=== PATIENT | male | born 1985 | race Caucasian/White ===

== ENCOUNTER 2017-11-23 11:11 | Inpatient (IN) | payer OTHER ==
[2017-11-23] MEDS: morphine 10 MG INJ IV (11:53)
[2017-11-23 13:27] LABS: ADD MAN DIFF? NO
[2017-11-23 13:29] LABS: WHITE BLOOD COUNT 8.4 10^3/ul (4.8-10.8)
[2017-11-23 13:29] LABS: BASOPHIL # 0.1 10^3/ul (0.0-0.1); BASOPHILS % 0.6 % (0.0-2.0); EOSINOPHILS # 0.3 10^3/ul (0.0-0.5); EOSINOPHILS % 3.2 % (0.0-7.0); HEMATOCRIT 45.1 % (42.0-52.0); HEMOGLOBIN 15.5 g/dl (14.0-18.0); LYMPHOCYTES # 2.5 10^3/ul (0.8-2.9); LYMPHOCYTES % 29.9 % (15.0-51.0); MEAN CORPUSCULAR HEMOGLOBIN 33.2 pg (29.0-33.0); MEAN CORPUSCULAR HGB CONC 34.4 g/dl (32.0-37.0); MEAN CORPUSCULAR VOLUME 96.6 fl (82.0-101.0); MEAN PLATELET VOLUME 9.9 fl (7.4-10.4); MONOCYTE # 0.5 10^3/ul (0.3-0.9); MONOCYTES % 6.5 % (0.0-11.0); NEUTROPHILS % 59.6 % (39.0-77.0); PLATELET COUNT 224 10^3/UL (140-415); RED BLOOD COUNT 4.67 10^6/ul (4.70-6.10); RED CELL DISTRIBUTION WIDTH 12.5 % (11.5-14.5)
[2017-11-23 13:32] LABS: INR 0.93; PROTIME 12.5 Sec (11.9-14.9)
[2017-11-23 13:33] LABS: PARTIAL THROMBOPLASTIN TIME 26.3 Sec (25.0-35.0)
[2017-11-23 13:39] LABS: ANION GAP 16 (8-16); BLOOD UREA NITROGEN 14 mg/dl (7-20); CALCIUM 9.4 mg/dl (8.4-10.2); CARBON DIOXIDE 22 mmol/L (21-31); CHLORIDE 107 mmol/L (97-110); CREATININE 0.79 mg/dl (0.61-1.24); GLUCOSE 128 mg/dl (70-220); POTASSIUM 3.5 mmol/L (3.5-5.1); SODIUM 141 mmol/L (135-144)
[2017-11-23] MEDS ORDERED: ACETAMINOPHEN 325 MG TAB PO ×2 (14:00→14:30)
[2017-11-23] MEDS ORDERED: ONDANSETRON 4 MG INJ IV ×2 (14:00→14:30)
[2017-11-23] MEDS: PROPOFOL 200 MG INJ IV (14:01)
[2017-11-23] MEDS: CEFAZOLIN 2 GM/50 ML (PMX) 50 ML IVPB (14:25)
[2017-11-23] MEDS ORDERED: NITROGLYCERIN (SL) 0.4 MG TAB SL (14:30)
[2017-11-23] MEDS ORDERED: NA PHOSPHATE/BIPHOS 133 ML ENEMA PR (14:30)
[2017-11-23] MEDS ORDERED: ALBUTEROL/IPRATROPIUM (NEB) 3 ML AMP HHN (14:30)
[2017-11-23] MEDS ORDERED: MAGNESIUM HYDROXIDE 30ML CUP PO (14:30)
[2017-11-23] MEDS ORDERED: hydrALAzine 20 MG INJ IV (14:30)
[2017-11-23] MEDS ORDERED: DOCUSATE SODIUM 100 MG CAP PO (14:30)
[2017-11-23] MEDS ORDERED: NACL 0.9% 3 ML SYG IV (14:30)
[2017-11-23] MEDS: HYDROmorphONE 2 MG/ML SYG IV (14:34)
[2017-11-23 15:01] LABS: FREE T4 (FREE THYROXINE) 1.03 ng/dl (0.79-2.35)
[2017-11-23] MEDS: morphine 2 MG INJ IV ×2 (17:11→21:29)
[2017-11-23] MEDS: SOD CHLORIDE 0.9% 1,000 ML IV (17:11)
[2017-11-23 19:22] LABS: INR 0.98; PARTIAL THROMBOPLASTIN TIME 29.1 Sec (25.0-35.0); PROTIME 13.1 Sec (11.9-14.9)
[2017-11-23] MEDS: HYDROCODONE/APAP (5/325) TAB PO (20:10)
[2017-11-23] MEDS: HEPARIN 5,000 UNIT/0.5 ML VIAL SC (22:06)
[2017-11-24] MEDS: morphine 2 MG INJ IV ×3 (01:54→16:21)
[2017-11-24] MEDS: SOD CHLORIDE 0.9% 1,000 ML IV ×5 (01:55→22:20)
[2017-11-24 05:40] LABS: ADD MAN DIFF? NO
[2017-11-24] MEDS: PANTOPRAZOLE (EC) 40 MG TAB PO (06:00)
[2017-11-24 06:02] LABS: BASOPHILS % 0.4 % (0.0-2.0); EOSINOPHILS # 0.2 10^3/ul (0.0-0.5); EOSINOPHILS % 2.5 % (0.0-7.0); HEMOGLOBIN 13.4 g/dl (14.0-18.0); LYMPHOCYTES # 2.6 10^3/ul (0.8-2.9); MEAN CORPUSCULAR HEMOGLOBIN 32.8 pg (29.0-33.0); MEAN CORPUSCULAR HGB CONC 33.5 g/dl (32.0-37.0); MONOCYTE # 0.6 10^3/ul (0.3-0.9); MONOCYTES % 6.9 % (0.0-11.0); NEUTROPHIL # 5.7 10^3/ul (1.6-7.5); NEUTROPHILS % 61.9 % (39.0-77.0); PLATELET COUNT 211 10^3/UL (140-415); RED BLOOD COUNT 4.08 10^6/ul (4.70-6.10); RED CELL DISTRIBUTION WIDTH 12.7 % (11.5-14.5)
[2017-11-24 06:02] LABS: WHITE BLOOD COUNT 9.2 10^3/ul (4.8-10.8)
[2017-11-24 06:14] LABS: HEMOGLOBIN A1C 5.5 % (0-5.9)
[2017-11-24 06:30] LABS: ANION GAP 10 (8-16); BLOOD UREA NITROGEN 10 mg/dl (7-20); CALCIUM 8.4 mg/dl (8.4-10.2); CARBON DIOXIDE 27 mmol/L (21-31); CHLORIDE 107 mmol/L (97-110); CREATININE 0.77 mg/dl (0.61-1.24); GLUCOSE 92 mg/dl (70-220); PHOSPHORUS 4.5 mg/dl (2.5-4.9); POTASSIUM 4.3 mmol/L (3.5-5.1); SODIUM 140 mmol/L (135-144)
[2017-11-24 06:37] LABS: CHOL/HDL RATIO 2.8 RATIO; HDL CHOLESTEROL 48 mg/dl (28-63); LDL CHOLESTEROL,CALCULATED 48 mg/dl; TRIGLYCERIDES 198 mg/dl (0-149)
[2017-11-24 06:37] LABS: CHOLESTEROL 136 mg/dl (100-200)
[2017-11-24] MEDS ORDERED: ROCURONIUM 50 MG INJ ×2 (07:00→17:17)
[2017-11-24] MEDS: HEPARIN 5,000 UNIT/0.5 ML VIAL SC ×2 (07:33→21:00)
[2017-11-24] MEDS: LORAZEPAM 2 MG INJ IV (08:26)
[2017-11-24] MEDS ORDERED: ONDANSETRON 4 MG INJ IV (17:00)
[2017-11-24] MEDS ORDERED: OXYCODONE/ACETAMINOPHEN (5/325) TAB PO ×2 (17:00)
[2017-11-24] MEDS ORDERED: EPHEDrine SULFATE 50 MG/5 ML SYG IV (17:00)
[2017-11-24] MEDS ORDERED: DIPHENHYDRAMINE 50 MG INJ IV (17:00)
[2017-11-24] MEDS ORDERED: MEPERIDINE 25 MG INJ IV (17:00)
[2017-11-24] MEDS ORDERED: METOCLOPRAMIDE 10 MG INJ IV (17:00)
[2017-11-24] MEDS ORDERED: LABETALOL HCL 20MG INJ IV (17:00)
[2017-11-24] MEDS ORDERED: HYDROmorphONE 1 MG/5 ML IV SYRINGE IV ×3 (17:00)
[2017-11-24] MEDS ORDERED: FENTAnyl 50 MCG/ML VIAL IV ×3 (17:00)
[2017-11-24] MEDS ORDERED: HYDROmorphONE 2 MG/ML SYG (17:17)
[2017-11-24] MEDS ORDERED: ROPIVACAINE 0.5 % 30 ML VIAL (17:17)
[2017-11-24] MEDS ORDERED: PROPOFOL 20 ML (17:17)
[2017-11-24] MEDS ORDERED: MIDAZOLAM 1 MG/ML 2 ML INJ (17:17)
[2017-11-24] MEDS ORDERED: CEFAZOLIN 1 GM INJ (17:17)
[2017-11-24] MEDS ORDERED: METOCLOPRAMIDE 10 MG INJ (17:48)
[2017-11-24] MEDS ORDERED: ACETAMINOPHEN 1000MG/100ML IV 100 ML (17:48)
[2017-11-24] MEDS ORDERED: ONDANSETRON 4 MG INJ (17:48)
[2017-11-24] MEDS ORDERED: DEXAMETHASONE 4 MG/ML 1 ML INJ (17:49)
[2017-11-24] MEDS ORDERED: KETOROLAC 30 MG INJ (17:49)
[2017-11-24] MEDS: POLYMYXIN/BACITRACIN 1L IRRIG (17:56)
[2017-11-24] MEDS ORDERED: HYDROCODONE/APAP (5/325) TAB PO (20:30)
[2017-11-24] MEDS: CEFAZOLIN 1 GM/50 ML (PMX) 50 ML IVPB (22:00)
[2017-11-25] MEDS: CEFAZOLIN 1 GM/50 ML (PMX) 50 ML IVPB ×3 (00:47→16:27)
[2017-11-25] MEDS: SOD CHLORIDE 0.9% 1,000 ML IV ×3 (04:25→16:14)
[2017-11-25 05:06] LABS: ADD MAN DIFF? NO
[2017-11-25 05:08] LABS: WHITE BLOOD COUNT 9.9 10^3/ul (4.8-10.8)
[2017-11-25 05:08] LABS: BASOPHILS % 0.1 % (0.0-2.0); HEMATOCRIT 38.3 % (42.0-52.0); HEMOGLOBIN 13.2 g/dl (14.0-18.0); MEAN CORPUSCULAR HEMOGLOBIN 32.9 pg (29.0-33.0); MEAN CORPUSCULAR HGB CONC 34.5 g/dl (32.0-37.0); MEAN CORPUSCULAR VOLUME 95.5 fl (82.0-101.0); MEAN PLATELET VOLUME 9.5 fl (7.4-10.4); MONOCYTE # 0.5 10^3/ul (0.3-0.9); NEUTROPHIL # 8.4 10^3/ul (1.6-7.5); NEUTROPHILS % 84.7 % (39.0-77.0); PLATELET COUNT 207 10^3/UL (140-415); RED BLOOD COUNT 4.01 10^6/ul (4.70-6.10); RED CELL DISTRIBUTION WIDTH 11.8 % (11.5-14.5)
[2017-11-25 05:39] LABS: ANION GAP 11 (8-16); BLOOD UREA NITROGEN 7 mg/dl (7-20); CALCIUM 8.5 mg/dl (8.4-10.2); CARBON DIOXIDE 27 mmol/L (21-31); CHLORIDE 104 mmol/L (97-110); CREATININE 0.69 mg/dl (0.61-1.24); GLUCOSE 105 mg/dl (70-220); POTASSIUM 4.1 mmol/L (3.5-5.1); SODIUM 138 mmol/L (135-144)
[2017-11-25] MEDS: PANTOPRAZOLE (EC) 40 MG TAB PO (06:00)
[2017-11-25] MEDS: HEPARIN 5,000 UNIT/0.5 ML VIAL SC ×2 (08:44→21:04)
[2017-11-25] MEDS: morphine 2 MG INJ IV ×2 (17:18→20:58)
[2017-11-25] MEDS: HYDROCODONE/APAP (5/325) TAB PO ×2 (18:25→22:26)
[2017-11-26] MEDS: CEFAZOLIN 1 GM/50 ML (PMX) 50 ML IVPB ×2 (00:45→08:09)
[2017-11-26] MEDS: HYDROCODONE/APAP (5/325) TAB PO ×2 (03:00→14:06)
[2017-11-26 05:26] LABS: ADD MAN DIFF? NO
[2017-11-26 05:37] LABS: BASOPHILS % 0.4 % (0.0-2.0); EOSINOPHILS # 0.1 10^3/ul (0.0-0.5); EOSINOPHILS % 1.4 % (0.0-7.0); HEMATOCRIT 37.1 % (42.0-52.0); HEMOGLOBIN 12.6 g/dl (14.0-18.0); LYMPHOCYTES # 2.5 10^3/ul (0.8-2.9); LYMPHOCYTES % 32.8 % (15.0-51.0); MEAN CORPUSCULAR HEMOGLOBIN 32.9 pg (29.0-33.0); MEAN CORPUSCULAR VOLUME 96.9 fl (82.0-101.0); MEAN PLATELET VOLUME 9.9 fl (7.4-10.4); MONOCYTE # 0.6 10^3/ul (0.3-0.9); MONOCYTES % 8.1 % (0.0-11.0); NEUTROPHIL # 4.4 10^3/ul (1.6-7.5); PLATELET COUNT 218 10^3/UL (140-415); RED BLOOD COUNT 3.83 10^6/ul (4.70-6.10); RED CELL DISTRIBUTION WIDTH 12.2 % (11.5-14.5)
[2017-11-26 05:37] LABS: WHITE BLOOD COUNT 7.7 10^3/ul (4.8-10.8)
[2017-11-26 06:13] LABS: ANION GAP 12 (8-16); BLOOD UREA NITROGEN 11 mg/dl (7-20); CALCIUM 8.4 mg/dl (8.4-10.2); CARBON DIOXIDE 28 mmol/L (21-31); CHLORIDE 105 mmol/L (97-110); CREATININE 0.69 mg/dl (0.61-1.24); GLUCOSE 123 mg/dl (70-220); POTASSIUM 3.7 mmol/L (3.5-5.1); SODIUM 141 mmol/L (135-144)
[2017-11-26] MEDS: PANTOPRAZOLE (EC) 40 MG TAB PO (08:00)
[2017-11-26] MEDS: morphine 2 MG INJ IV ×2 (08:09→12:09)
[2017-11-26] MEDS: HEPARIN 5,000 UNIT/0.5 ML VIAL SC (08:16)
== END 2017-11-26 15:25 | disposition home or self-care (01) | DRG 494 ==
LOC: E/R 11:11 → MS1 14:01
PROC: 0QSJ04Z Reposition Right Fibula with Internal Fixation Device, Open Approach (ICD-10-PCS; principal; 2017-11-24 17:00)
PROC: 0QSG04Z Reposition Right Tibia with Internal Fixation Device, Open Approach (ICD-10-PCS; 2017-11-24 17:00)
DX: S82.841A Displaced bimalleolar fracture of right lower leg, initial encounter for closed fracture (principal); S93.01XA Subluxation of right ankle joint, initial encounter; W12.XXXA Fall on and from scaffolding, initial encounter; Y92.69 Other specified industrial and construction area as the place of occurrence of the external cause
CPT/HCPCS: 73610-RT; 73630; 80048; 80061; 83036; 83735; 84100; 84439; 84443; 85025; 85610; 85730; 94770; 96374; 97116; 97161; 97530; 99285-25